=== PATIENT | female | born 1990 | race Caucasian/White ===

== ENCOUNTER 2018-10-03 07:17 | Day surgery (SDC) | payer BC ==
[~2018-10-03 07:17] MED LIST: CEFAZOLIN 2 GM/50 ML (PMX) 50 ML IVPB; LACTATED RINGER'S 1,000 ML IV*; LIDOCAINE 2% (SDV) 5 ML INJ
[2018-10-03 08:02] LABS: ADD MAN DIFF? NO
[2018-10-03 08:04] LABS: WHITE BLOOD COUNT 6.4 10^3/ul (4.8-10.8)
[2018-10-03 08:04] LABS: BASOPHILS % 0.6 % (0.0-2.0); EOSINOPHILS # 0.1 10^3/ul (0.0-0.5); HEMATOCRIT 39.3 % (37.0-47.0); HEMOGLOBIN 13.1 g/dl (12.0-16.0); LYMPHOCYTES # 1.9 10^3/ul (0.8-2.9); LYMPHOCYTES % 29.3 % (15.0-51.0); MEAN CORPUSCULAR HEMOGLOBIN 26.8 pg (29.0-33.0); MEAN CORPUSCULAR HGB CONC 33.3 g/dl (32.0-37.0); MEAN CORPUSCULAR VOLUME 80.5 fl (82.0-101.0); MEAN PLATELET VOLUME 9.4 fl (7.4-10.4); MONOCYTE # 0.5 10^3/ul (0.3-0.9); MONOCYTES % 7.4 % (0.0-11.0); NEUTROPHIL # 3.9 10^3/ul (1.6-7.5); NEUTROPHILS % 60.4 % (39.0-77.0); PLATELET COUNT 228 10^3/UL (140-415); RED BLOOD COUNT 4.88 10^6/ul (4.20-5.40); RED CELL DISTRIBUTION WIDTH 13.5 % (11.5-14.5)
[2018-10-03 08:22] LABS: INR 0.94; PROTIME 12.7 Sec (11.9-14.9)
[2018-10-03 08:23] LABS: PARTIAL THROMBOPLASTIN TIME 28.7 Sec (23.0-35.0)
[2018-10-03] MEDS ORDERED: MIDAZOLAM 1 MG/ML 2 ML INJ (09:23)
[2018-10-03] MEDS ORDERED: PROPOFOL 20 ML (09:23)
[2018-10-03] MEDS ORDERED: FENTAnyl 50 MCG/ML VIAL (09:23)
[2018-10-03] MEDS ORDERED: ROCURONIUM 50 MG INJ (09:23)
[2018-10-03] MEDS ORDERED: OXYCODONE/ACETAMINOPHEN (5/325) TAB PO ×2 (09:30)
[2018-10-03] MEDS ORDERED: ROPIVACAINE 0.5 % 30 ML VIAL (09:31)
[2018-10-03] MEDS ORDERED: CEFAZOLIN 1 GM INJ (09:44)
[2018-10-03] MEDS ORDERED: ONDANSETRON 4 MG INJ (09:45)
[2018-10-03] MEDS ORDERED: SUCCINYLCHOLINE CHLORIDE 100 MG/5 ML SYG IV (10:01)
[2018-10-03] MEDS ORDERED: NEOSTIGMINE 3 MG/3 ML SYRINGE (10:30)
[2018-10-03] MEDS ORDERED: GLYCOPYRROLATE 0.4 MG INJ (10:30)
[2018-10-03] MEDS: ONDANSETRON 4 MG INJ IV (10:46)
[2018-10-03] MEDS: HYDROmorphONE 1 MG/5 ML IV SYRINGE IV ×5 (10:50→11:25)
== END 2018-10-03 12:09 | disposition home or self-care (01) ==
LOC: SDS 07:17
DX: Z30.2 Encounter for sterilization (principal)
CPT/HCPCS: 58670; 85025; 85610; 85730; 88302